=== PATIENT | female | born 1955 | race Native Hawaiian/Other Pacific Islander ===

== ENCOUNTER 2016-12-31 07:50 | Emergency (ER) | payer OTHER ==
[~2016-12-31] VITALS: Ht 160 cm; Wt 54.4 kg
[2016-12-31] MEDS ORDERED: NAPROSYN375 MG OR (09:03)
== END 2016-12-31 09:15 | disposition home or self-care (01) ==
LOC: ED 07:50
DX: S93.401A Sprain of unspecified ligament of right ankle, initial encounter (principal); S93.601A Unspecified sprain of right foot, initial encounter; X50.1XXA Overexertion from prolonged static or awkward postures, initial encounter; Y92.098 Other place in other non-institutional residence as the place of occurrence of the external cause
CPT/HCPCS: 99283